=== PATIENT | male | born 1985 ===

== ENCOUNTER 2018-09-28 15:08 | Outpatient (CLI) | payer MEDICAID ==
[2018-09-28] MEDS ORDERED: iohexol 300mg/ml 100ml inj. ONE (15:11)
== END 2018-09-28 23:59 ==
LOC: 64 CT 15:08
PROVIDERS: ATTEND Specialist
DX: J90 Pleural effusion, not elsewhere classified (principal); J98.11 Atelectasis; K65.8 Other peritonitis
CPT/HCPCS: 74177; Q9967